=== PATIENT | male | born 1995 | race Caucasian/White ===

== ENCOUNTER → 2016-10-31 | Outpatient (CLI) | payer OTHER ==
[2016-10-31 12:01] LABS: ALBUMIN 4.1 GM/DL (3.2-5.2); ALBUMIN/GLOBULIN RATIO 1.32 (1.00-1.93); ALKALINE PHOSPHATASE 58 U/L (45-117); ALT/SGPT 43 U/L (12-78); ANION GAP 7 MEQ/L (8-16); AST/SGOT 27 U/L (15-37); BILIRUBIN,TOTAL 0.5 MG/DL (0.2-1.0); BLOOD UREA NITROGEN 16 MG/DL (7-18); CARBON DIOXIDE LEVEL 28 MEQ/L (21-32); CHLORIDE LEVEL 106 MEQ/L (98-107); CHOLESTEROL LEVEL 174 MG/DL (<200); CREATININE FOR GFR 0.95 MG/DL (0.70-1.30); GLUCOSE, FASTING 85 MG/DL (70-105); POTASSIUM SERUM 4.3 MEQ/L (3.5-5.1); SODIUM LEVEL 141 MEQ/L (136-145); TOTAL PROTEIN 7.2 GM/DL (6.4-8.2); TRIGLYCERIDES LEVEL 255 MG/DL (<150)
== END ==
LOC: M LAB 10:50
PROVIDERS: ATTEND Family Medicine
DX: E66.01 Morbid (severe) obesity due to excess calories (principal)

== ENCOUNTER → 2019-03-21 | Outpatient (REF) | payer OTHER ==
[2019-03-21 23:12] LABS: CHLAMYDIA DNA AMPLIFICATION POSITIVE (NEGATIVE); GC DNA AMPLIFICATION NEGATIVE (NEGATIVE)
== END ==
LOC: M LAB REF 09:36
PROVIDERS: ATTEND Nurse Practitioner Family
DX: Z11.3 Encounter for screening for infections with a predominantly sexual mode of transmission (principal)

== ENCOUNTER → 2019-03-22 | Outpatient (CLI) | payer OTHER ==
--- NOTE | 2019-03-22 14:58 | REP ---
RIGHT HAND SERIES: Four views. HISTORY: Pain. Trauma. FINDINGS: Four views right hand demonstrate an obliquely oriented fracture through the distal diaphysis of the 5th metacarpal with associated swelling. There is apex dorsal angulation and slight impaction. IMPRESSION: Boxer's fracture 5th metacarpal. Electronically Signed by Farhan Palafox MD 03/22/2019 03:19 P
== END ==
LOC: M WUC 12:16
PROVIDERS: ATTEND Physician Assistant
DX: M79.641 Pain in right hand (principal)

== ENCOUNTER → 2019-08-16 | Outpatient (REF) | payer OTHER ==
[2019-08-16 14:04] LABS: INFLUENZA A AMPLIFICATION NEGATIVE (NEGATIVE); INFLUENZA B AMPLIFICATION NEGATIVE (NEGATIVE)
== END ==
LOC: M LAB REF 12:14
PROVIDERS: ATTEND Physician Assistant Medical
DX: J11.1 Influenza due to unidentified influenza virus with other respiratory manifestations (principal)

== ENCOUNTER → 2019-11-26 | Outpatient (REF) | payer OTHER ==
[2019-11-26 13:43] LABS: CHLAMYDIA DNA AMPLIFICATION NEGATIVE (NEGATIVE); GC DNA AMPLIFICATION POSITIVE (NEGATIVE)
== END ==
LOC: M WUC 11:18
PROVIDERS: ATTEND Physician Assistant
DX: R30.0 Dysuria (principal)

== ENCOUNTER → 2020-02-09 | Outpatient (REF) | payer OTHER ==
[2020-02-10 15:28] LABS: CHLAMYDIA DNA AMPLIFICATION NEGATIVE (NEGATIVE); GC DNA AMPLIFICATION NEGATIVE (NEGATIVE)
== END ==
LOC: M WUC 19:10
PROVIDERS: ATTEND Nurse Practitioner Family
DX: R30.0 Dysuria (principal)

== ENCOUNTER → 2020-02-18 | Outpatient (CLI) | payer OTHER ==
--- NOTE | 2020-02-18 17:55 | REPVR ---
PROCEDURE INFORMATION: Exam: XR Left Finger(s) Exam date and time: 02/18/2020 5:47 PM Age: 24 years old Clinical indication: Injury or trauma; Injury history: Dropped log on pinky finger; Initial encounter; Sprain or strain; Left; Little finger TECHNIQUE: Imaging protocol: XR Left fingers. Views: Minimum 2 views. COMPARISON: CR HAND COMPLETE 03/22/2019 12:25 PM FINDINGS: Bones/joints: Fractures of the middle phalanx of the 5th finger. Otherwise unremarkable. Soft tissues: Soft tissue edema 5th finger. IMPRESSION: 1. Fractures of the middle phalanx of the 5th finger. 2. Soft tissue edema 5th finger. Electronically signed by: Epi Corona On 02/18/2020 17:54:44 PM
== END ==
LOC: M RAD 17:33
PROVIDERS: ATTEND Physician Assistant
DX: S62.653A Nondisplaced fracture of middle phalanx of left middle finger, initial encounter for closed fracture (principal); X58.XXXA Exposure to other specified factors, initial encounter; Y92.89 Other specified places as the place of occurrence of the external cause

== ENCOUNTER → 2020-05-09 | Outpatient (REF) | payer OTHER ==
[2020-05-10 00:11] LABS: CHLAMYDIA DNA AMPLIFICATION NEGATIVE (NEGATIVE); GC DNA AMPLIFICATION NEGATIVE (NEGATIVE)
== END ==
LOC: M LAB REF 22:30
PROVIDERS: ATTEND Physician Assistant Medical
DX: Z11.3 Encounter for screening for infections with a predominantly sexual mode of transmission (principal)

== ENCOUNTER → 2020-07-28 | Outpatient (REF) | payer OTHER ==
[2020-07-28 18:07] LABS: HEMATOCRIT 45.9 % (42.0-52.0); HEMOGLOBIN 15.3 g/dl (13.5-17.5); MEAN CORPUSCULAR HEMOGLOBIN 29.2 pg (27.0-33.0); MEAN CORPUSCULAR HGB CONC 33.3 g/dl (32.0-36.5); MEAN CORPUSCULAR VOLUME 87.6 fl (80.0-96.0); PLATELET COUNT, AUTOMATED 221 10^3/uL (150-450); RED BLOOD COUNT 5.24 10^6/uL (4.30-6.10); WHITE BLOOD COUNT 8.8 10^3/uL (4.0-10.0)
[2020-07-28 18:42] LABS: ALBUMIN 4.3 GM/DL (3.2-5.2); ALT/SGPT 49 U/L (12-78); BILIRUBIN,TOTAL 0.3 MG/DL (0.2-1.0); BLOOD UREA NITROGEN 17 MG/DL (7-18); CALCIUM LEVEL 8.9 MG/DL (8.5-10.1); CARBON DIOXIDE LEVEL 27 MEQ/L (21-32); CHLORIDE LEVEL 104 MEQ/L (98-107); CREATININE FOR GFR 1.04 MG/DL (0.70-1.30); FREE T4 1.16 NG/DL (0.76-1.46); GLOMERULAR FILTRATION RATE > 60.0 (>60); GLUCOSE, FASTING 77 MG/DL (70-100); POTASSIUM SERUM 4.8 MEQ/L (3.5-5.1); SODIUM LEVEL 139 MEQ/L (136-145); TOTAL PROTEIN 7.8 GM/DL (6.4-8.2)
== END ==
LOC: M SFHCADAM 15:32
PROVIDERS: ATTEND Family Medicine
DX: K52.9 Noninfective gastroenteritis and colitis, unspecified (principal); F43.22 Adjustment disorder with anxiety

== ENCOUNTER → 2020-10-30 | Outpatient (CLI) | payer OTHER ==
--- NOTE | 2020-10-30 14:11 | REP ---
INDICATION: PAIN COMPARISON: None. TECHNIQUE: AP, lateral, bilateral oblique views left ankle. FINDINGS: Soft tissue swelling is suggested. No acute or obvious healed injury. Ankle mortise intact. IMPRESSION: Soft tissue swelling. No obvious acute or healed injury identified. <Electronically signed by Augustin Estes > 10/30/20 [id number]
== END ==
LOC: M WUC 13:36
PROVIDERS: ATTEND Nurse Practitioner Family
DX: M79.89 Other specified soft tissue disorders (principal)

== ENCOUNTER → 2020-11-09 | Outpatient (CLI) | payer OTHER ==
--- NOTE | 2020-11-09 15:14 | REP ---
INDICATION: PAIN LEFT ANKLE COMPARISON: None. TECHNIQUE: AP, lateral, bilateral oblique views. FINDINGS: No acute fracture or dislocation. Skeletal structures and joint spaces are intact and normal. Ankle mortise appears stable. No subcutaneous emphysema or radiodense foreign body. IMPRESSION: Normal left ankle radiograph series. No acute fracture or dislocation. <Electronically signed by Augustin Estes > 11/09/20 [id number]
--- NOTE | 2020-11-09 15:15 | REP ---
INDICATION: PAIN IN LEFT ANKLE COMPARISON: None. TECHNIQUE: AP, lateral, bilateral oblique views left foot. FINDINGS: The osseous structures and joint spaces are intact and normal. There is no evidence for acute fracture or dislocation. Surrounding soft tissues are unremarkable. No subcutaneous emphysema or radiodense foreign body. IMPRESSION: Normal left foot series. No acute fracture or dislocation. <Electronically signed by Augustin Estes > 11/09/20 [id number]
== END ==
LOC: M SOG 14:21
PROVIDERS: ATTEND Orthopaedic Surgery Sports Medicine
DX: M25.572 Pain in left ankle and joints of left foot (principal)

== ENCOUNTER → 2021-08-14 | Outpatient (REF) | payer OTHER ==
[2021-08-14 12:39] LABS: HEMATOCRIT 44.5 % (42.0-52.0); HEMOGLOBIN 14.9 g/dl (13.5-17.5); MEAN CORPUSCULAR HEMOGLOBIN 28.9 pg (27.0-33.0); MEAN CORPUSCULAR HGB CONC 33.5 g/dl (32.0-36.5); MEAN CORPUSCULAR VOLUME 86.4 fl (80.0-96.0); PLATELET COUNT, AUTOMATED 223 10^3/uL (150-450); RED BLOOD COUNT 5.15 10^6/uL (4.30-6.10); WHITE BLOOD COUNT 7.6 10^3/uL (4.0-10.0)
[2021-08-14 14:08] LABS: ALBUMIN 4.2 GM/DL (3.2-5.2); ALT/SGPT 39 U/L (12-78); BILIRUBIN,TOTAL 0.3 MG/DL (0.2-1.0); BLOOD UREA NITROGEN 13 MG/DL (7-18); CALCIUM LEVEL 9.2 MG/DL (8.5-10.1); CARBON DIOXIDE LEVEL 27 MEQ/L (21-32); CHLORIDE LEVEL 105 MEQ/L (98-107); CREATININE FOR GFR 1.02 MG/DL (0.70-1.30); FREE T4 1.07 NG/DL (0.76-1.46); GLOMERULAR FILTRATION RATE > 60.0 (>60); GLUCOSE, FASTING 90 MG/DL (70-100); POTASSIUM SERUM 4.8 MEQ/L (3.5-5.1); SODIUM LEVEL 137 MEQ/L (136-145); TOTAL PROTEIN 7.2 GM/DL (6.4-8.2)
== END ==
LOC: M SFHCADAM 09:21
PROVIDERS: ATTEND Family Medicine
DX: F41.8 Other specified anxiety disorders (principal)

== ENCOUNTER → 2022-03-02 | Outpatient (CLI) | payer OTHER | LOC: M RAD 13:30 | PROVIDERS: ATTEND Student in an Organized Health Care Education/Training Program | DX: M54.2 Cervicalgia (principal) ==